=== PATIENT | female | born 1995 | race Caucasian/White ===

== ENCOUNTER 2018-07-25 20:48 | Emergency (ER) | payer MEDICAID ==
[~2018-07-25] VITALS: Ht 167.6 cm; Wt 109.0 kg
[2018-07-26] MEDS ORDERED: ONDANSETRON HCL 4MG/2ML INJ IV STA (00:28)
[2018-07-26] MEDS ORDERED: SODIUM CHLORIDE 0.9% 1,000 ML IV ONE (00:28)
[2018-07-26] MEDS ORDERED: KETOROLAC 30MG/ML VIAL IV STA (00:28)
[2018-07-26 02:05] LABS: BASOPHILS % 0.4 % (0.0-2.0); EOSINOPHILS % 0.7 % (0.0-5.0); HEMATOCRIT. 43.6 % (36.0-48.0); HEMOGLOBIN. 14.9 g/dL (12.0-16.0); LYMPHOCYTES % 40.2 % (20.0-50.0); MEAN CORPUSCULAR HEMOGLOBIN 29.2 pg (28.0-32.0); MEAN CORPUSCULAR VOLUME 85.5 fL (81.0-99.0); MEAN PLATELET VOLUME 9.4 fl (7.4-10.4); MONOCYTES % 7.7 % (2.0-8.0); PLATELET 302 x1000/uL (130-400); RED CELL DISTRIBUTION WIDTH 13.4 % (11.6-14.6)
[2018-07-26 02:09] LABS: CHLORIDE 104 mEq/L (98-107)
[2018-07-26 02:25] LABS: CLARITY URINE CLEAR (CLEAR); COLOR URINE YELLOW (YELLOW); KETONES URINE NEGATIVE (NEGATIVE); LEUKOCYTE ESTERASE URINE TRACE (NEGATIVE); NITRITE URINE NEGATIVE (NEGATIVE); OCCULT BLOOD URINE NEGATIVE (NEGATIVE); PROTEIN URINE NEGATIVE (NEGATIVE); SPECIFIC GRAVITY URINE 1.027 (1.005-1.030); UROBILINOGEN URINE 0.2 E.U./dL (0.2-1.0)
[2018-07-26 04:24] VITALS: BP 127/68
== END 2018-07-26 05:18 | disposition home or self-care (01) ==
LOC: ER 20:48
DX: K29.70 Gastritis, unspecified, without bleeding (principal); R10.13 Epigastric pain
CPT/HCPCS: 36415; 76705; 80053; 81003; 81025; 83690; 85025; 96361; 96374; 96375; 99284; J1885; J2405; J7030

== ENCOUNTER 2018-07-26 12:22 | Emergency (ER) | payer MEDICAID ==
[~2018-07-26] VITALS: Ht 167.6 cm; Wt 104.0 kg
[2018-07-26] MEDS ORDERED: SODIUM CHLORIDE 0.9% 1,000 ML IV ONE (13:41)
[2018-07-26] MEDS ORDERED: FAMOTIDINE 20MG/2ML VIAL IV STA (13:41)
[2018-07-26] MEDS ORDERED: MAGNESIUM/ALUMINUM HYDROXIDE/SIMETHICONE 30ML UDC PO STA (13:41)
[2018-07-26] MEDS ORDERED: DICYCLOMINE HCL 10MG/ML 2ML AMP IM ONE (13:45)
[2018-07-26 17:30] VITALS: BP 119/64
== END 2018-07-26 18:15 | disposition home or self-care (01) ==
LOC: ER 13:21
DX: R10.13 Epigastric pain (principal); N39.0 Urinary tract infection, site not specified; K76.0 Fatty (change of) liver, not elsewhere classified
CPT/HCPCS: 74176; 81025; 96372; 96374; 99284; J0500; J3490; J7030